=== PATIENT | male | born 1980 | race Two or more races ===

== ENCOUNTER 2016-10-28 22:50 | Emergency (ER) | payer SELFPAY ==
[~2016-10-28] VITALS: Ht 167.6 cm; Wt 72.6 kg
[2016-10-29 00:10] VITALS: BP 114/53
--- NOTE | 2016-10-29 03:24 | Emergency Room Report ---
History of Present Illness General Chief Complaint: Alcohol Intoxication Source: Patient Present Illness HPI This is 27-year-old male who presented after increased altered mental status. Patient unknown onset. The patient was found down in street.History markedly limited by patient's mental status. Allergies: Coded Allergies: UNABLE TO ASSESS (Unverified , 10/28/16) Patient History Past Medical History: see triage record Reviewed Nursing Documentation: PMH: Agreed, PSxH: Agreed Nursing Documentation-PMH Past Medical History Deferred: Pt Cognitively Impaired Past Medical History: Deferred Review of Systems All Other Systems: limited - by mental status Physical Exam Vital Signs Date Time Temp Pulse Resp B/P Pulse Ox O2 Delivery O2 Flow Rate FiO2 10/28/16 22:46 99.3 75 16 112/53 98 Room Air Sp02 EP Interpretation: reviewed, normal General Appearance: normal inspection, well appearing Head: atraumatic ENT: normal ENT inspection, hearing grossly normal, normal voice Neck: normal inspection, full range of motion, supple, no bony tend Respiratory: normal inspection, lungs clear, normal breath sounds, no respiratory distress, no retraction, no wheezing Cardiovascular #1: regular rate, rhythm, no edema Gastrointestinal: normal inspection, normal bowel sounds, non tender, soft, no guarding, no hernia Genitourinary: no CVA tenderness Musculoskeletal: normal inspection, back normal, normal range of motion Neurologic: speech normal, motor weakness Psychiatric: normal inspection, judgement/insight normal, mood/affect normal Skin: normal inspection, normal color, no rash Medical Decision Making Diagnostic Impression: Primary Impression: Acute alcoholic intoxication ER Course Patient presented for altered mental status. Differential diagnosis included but was not limited to ischemic stroke, subarachnoid hemorrhage, alcohol intoxication, hypoglycemia, spinal cord injury, neurodegenerative disorder, urinary tract infection, hypoxemia.Patient was noted to have initially confused mental status. CT the head read by radiology showed a motion artifact versus a parenchymal hemorrhage. The patient denies any trauma. The patient's CT findings do not appear to require hospitalization . The patient have improvement in his mental status. The patient shows no external signs of traumaPatient had gradual improvement of neurologic status. At the time of discharge the patient was alert and ambulatory without assistance and had a good plan for self care. Patient declined placement. Patient was seen and examined by me in the emergency department. No life- threatening signs or symptoms were identified. Patient is stable for discharge from emergency Department. Patient was advised to stop drinking alcohol. And to followup with outpatient therapy for alcohol treatment. Last Vital Signs Date Time Temp Pulse Resp B/P Pulse Ox O2 Delivery O2 Flow Rate FiO2 10/28/16 22:46 99.3 75 16 112/53 98 Room Air Status: improved Disposition: HOME, SELF-CARE Condition: Stable Mario Pappas Oct 29, 2016 03:24
[2016-10-29 03:55] VITALS: BP 101/52
[2016-10-29 05:30] VITALS: BP 111/55
[2016-10-29 05:35] VITALS: BP 111/55
--- NOTE | 2016-10-31 09:15 | Diagnostic Imaging Report ---
Indication: Altered mental status Technique: Continuous helical CT scanning of the head was performed without intravenous contrast material. Axial and coronal 5 mm sections were generated. Dose: Total Dose Length Product - DLP [address] Dose Index - CTDIvol(s) 70.38 mGy. Comparison: None Findings: The ventricles and sulci are prominent for the patient's age. There is a small area of hyperdensity in the right temporal lobe series 6 image 6. There is no shift of midline structures. No abnormal extra-axial fluid collections are noted. There is no evidence of intracerebral bleeding. No other abnormal high or low density areas are noted within the brain.. Impression: Small focal area of hyperdensity in the right temporal lobe. This may be due to artifact. A small focus of hemorrhage is not excluded. MRI may be obtained for further evaluation if clinically warranted. Prominence of sulci and the ventricles for this patient's age. This may represent some atrophy. There are aircraft The above report is concordant with preliminary reading by [facility] with some additional findings. The CT scanner at [facility] is accredited by the [employer] and the scans are performed using protocols designed to limit radiation exposure to as low as reasonably achievable to attain images of sufficient resolution adequate for diagnostic evaluation.
== END 2016-10-29 05:35 | disposition home or self-care (01) ==
LOC: EDBD 22:50 → EMR 23:30
DX: F10.129 Alcohol abuse with intoxication, unspecified (principal); R41.82 Altered mental status, unspecified
CPT/HCPCS: 70450; 99284